=== PATIENT | female | born 1950 | race Caucasian/White ===

== ENCOUNTER 2023-10-24 21:05 | Observation (INO) | payer MEDICARE, BC, SELFPAY ==
[2023-10-24] VITALS (8 sets, daily range): BP systolic 95–140; BP diastolic 55–77; BMI 27.2
[2023-10-24 17:07] LABS: % Basophils 0.3 % (0-2); % Eosinophils 2.8 % (0-6); % Immature Granulocytes 0.3 % (0-0.5); % Lymphocytes 34.5 % (20.5-51.1); % Monocytes 12.2 % (1.7-9.3); % Neutrophils 49.9 % (42.2-75.2); Absolute Eosinophils 0.2 10^3/uL (0-0.7); Absolute Lymphocytes 2.1 10^3/uL (1.2-3.4); Absolute Monocytes 0.8 10^3/uL (0.1-0.6); Absolute Neutrophils 3.1 10^3/uL (1.4-6.5); Hemoglobin 13.6 g/dL (12.0-16.0); Mean Corp Hgb Conc. 34.9 g/dL (33.0-37.0); Mean Corpuscular Hgb 31.1 pg (27.0-31.0); Mean Platelet Volume 10.2 fL (7.4-10.4); Nucleated Red Blood Cells % 0 %; Platelet Count 233 10^3/uL (130-400); Red Blood Cell Count 4.38 10^6/uL (4.20-5.40); Red Cell Dist. Width 13.2 % (11.5-14.5); White Blood Cell Count 6.1 10^3/uL (4.8-10.8)
[2023-10-24 17:18] LABS: ALT (SGPT) 18 U/L (0-35); AST (SGOT) 30 U/L (14-36); Albumin 4.3 g/dl (3.5-5.0); Alkaline Phosphatase 78 U/L (38-126); Blood Urea Nitrogen 12 mg/dl (7-17); Calcium 9.2 mg/dl (8.4-10.2); Carbon Dioxide 28 mmol/L (22-30); Chloride 99 mmol/L (98-107); Glucose 84 mg/dl (70-99); Potassium 4.6 mmol/L (3.5-5.1); Sodium 131 mmol/L (135-145); Total Bilirubin 0.5 mg/dl (0.2-1.3); Total Protein 7.2 g/dl (6.3-8.2); eGFR > 60.00
[2023-10-24 17:24] LABS: INR 1.14; PT 14.4 Sec (11.4-14.6)
--- NOTE | 2023-10-24 18:33 | ED.GENMED ---
History of Present Illness
General
Chief Complaint: Weakness
Source: patient
Exam Limitations: none
Time Seen by Provider: 10/24/23 18:27
Nursing documentation reviewed up to this point in time: agreed with
Travel History
Have you had any contact with someone who has COVID-19?: No
Do you have any symptoms of coronavirus? Fever > 100 degrees, chills, cough, shortness of breath, sore throat, loss of taste or smell, muscle aches, or headache?: No
History of Present Illness
History of Present Illness:
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
left foot and left arm kept ivan.' Feels her left foot 'keeps pulling up' and left hand and arm 'keeps tightening up.'
She denies any recent falls/head injury.
She states she had similar symptoms of brain fog and 'contractions' on the left side of her body in April 2023 and was found to have a 'bladder wall infection' and needed IV antibiotics.
Patient denies fever or chills, denies chest pain or trouble breathing, denies abdominal pain. Denies dysuria, frequency, urgency.
Patient lives alone at [facility] in independent living. Her PCP is Dr. Chavira and she has appt to see in 4 days
Past History
Past History
ED Past Medical History: CVA, Hypercholesterolemia and Other (DVT 07/2023 on Eliquis)
ED Past Surgical History: Gynecological and Orthopedic
Social History
Tobacco: Non-smoker
Alcohol: None
Personal: Single
Living: alone
Review of Systems
Review of Systems
Allergies reviewed?: Yes
All Other Systems: ROS reviewed and negative except as documented in HPI and ROS
Constitutional: Denies fever or chills
Respiratory: Denies trouble breathing
Cardiac: Denies chest pain, palpitations or syncope
ABD/GI: Denies abdominal pain, nausea, vomiting, diarrhea or constipated
: Denies dysuria, frequency, flank pain, difficulty voiding or urgency
Musculoskeletal: Denies edema
Skin: Reports no symptoms
Neurological: Reports other ('Pulling' sensation left leg and arm, her left foot keeps 'pulling up.' Feels like her left arm and left leg muscles 'tighten up.'); Denies headache or weakness
Phy Exam
Physical Exam
Physical Exam:
GENERAL: No acute distress. A&Ox3.
CONSTITUTIONAL: Afebrile.
EYES: PERRL, conjunctivae normal
ENMT: moist mucus membranes, Pharynx nl
RESPIRATORY: Regular respirations, nonlabored, lungs clear.
CARDIOVASCULAR: Regular rate and rhythm, no murmurs, no rubs.
GI: Soft, nontender, normal BS
MUSCULOSKELETAL: Adequate range of motion of all extremities. Well perfused. No edema. No contractions, spasms, tremors of extremities note.
SKIN: Warm, dry, pink
PSYCH: Normal mood and affect. Well kept, interactive and appropriate
NEUROLOGIC: Awake, alert and oriented. Speech very slow and deliberate. Hand grasp equal. Strength equal throughout.
Course
Orders/Labs/Results
Orders:
Orders
10/24/23 16:46
Electrocardiogram (*1) Urgent
Reason for Study: Fatigue / Weakness
EKG- Treatment ONCE
10/24/23 16:53
Complete Blood Count/With Diff Urgent
Comprehensive Metabolic Panel Urgent
Magnesium Urgent
Comment: ADD ON
PT/INR [Prothrombin Time] Urgent
10/24/23 18:53
Straight cath- Treatment ONCE
10/24/23 18:54
CT Head W/o Iv Contrast Urgent
Comment:
Reason For Exam: left arm and leg spasms, feels 'brain fog'
10/24/23 19:50
Urinalysis Reflex To Culture Urgent
Date Specimen was Collected: 10/24/23
Time Specimen was Collected: 18:56
Urine Microscopic Reflex Cult Urgent
10/24/23 20:41
Add On- LAB Urgent
Tests Added?: Magnesium
Abnormal Lab Results
10/24/23 10/24/23
16:53 19:50
MCH 31.1 H pg
(27.0-31.0)
Absolute Monos (auto) 0.8 H 10^3/uL
(0.1-0.6)
Monocytes % 12.2 H %
(1.7-9.3)
Sodium 131 L mmol/L
(135-145)
Ur Occult Blood Reflex 1+ A
(Negative)
Urine RBC 11-15 A /HPF
(0-2)
10/24/23 16:53
10/24/23 16:53
Vital Signs
Initial and Last Documented VS:
Initial Vital Signs
Temp Pulse Resp BP Pulse Ox
98.1 F 63 16 122/75 95
10/24/23 16:24 10/24/23 16:24 10/24/23 16:24 10/24/23 16:24 10/24/23 16:24
Last Documented Vital Signs
Temp Pulse Resp BP Pulse Ox
98.1 F 65 16 125/77 99
10/24/23 16:24 10/24/23 18:01 10/24/23 18:01 10/24/23 18:01 10/24/23 18:01
MDM/Problems Addressed
Differential Diagnosis Includes:
UTI, TIA/CVA
MDM/Problems Addressed:
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
left foot and left arm kept contacting.' Feels her left foot 'keeps pulling up' and left hand and arm 'keeps tightening up.'
She denies any recent falls/head injury.
She states she had similar symptoms in April 2023 and was found to have a 'bladder wall infection' and needed IV antibiotics.
Patient denies fever or chills, denies chest pain or trouble breathing, denies abdominal pain.
Patient lives alone at [facility] in independent living. Her PCP is Dr. Chavira and she has appt to see in 4 days
Afebrile, NAD
EKG NSR
10/24/2023 1859 PM
CBC unremarkable
CMP with no clinically significant abnormality
10/24/2023 193 PM
Radiology report sent to me:
There is no acute intracranial process.
Moderate volume loss. Moderate leukoaraiosis.
Previous infarcts in the external capsule basal ganglia bilaterally right greater than left.
10/24/20232009 PM
Straight cath UA: Negative for infection
Explained to patient nothing in today's workup to explain her symptoms
She lives alone, she is unable to ambulate, she had to be physically lifted by 2 people out of the wheelchair and onto the stretcher
She will be admitted for ambulatory dysfunction, she needs PT evaluation
Hospitalist notified of admission
*EKG
EKG Intrepretation Date: 10/24/23
Rate: normal
Rhythm: sinus
[place]: normal axis
Interval: normal interval
QRS Pattern: normal QRS
Ischemia: no ischemia
*Critical Care Note
Total Time (30-74mins, 75-104mins- exclusive of procedures): Not Applicable
ED Attending Note
-
Portions of this chart may have been created with voice recognition software.� Occasional wrong word or��sound alike� substitutions may have occurred due to the inherent limitations of voice recognition software.
Discharge Plan
Departure
Patient Disposition: Admit
Date of Disposition: 10/24/23
Time of Disposition: 20:11
Presentation/result/management discussed w/ accepting MD/DO: Hospitalist
Condition: Fair
Discharge Problem:
Ambulatory dysfunction, Muscle spasm of left lower extremity
Prescriptions:
No Action
acetaminophen 325 mg Tablet
1,300 mg PO BID
B Complex Tablet Extended Release
1 tab PO DAILY
fexofenadine [Erum] 180 mg Tablet
180 mg PO HS
escitalopram oxalate 10 mg tablet
10 mg PO DAILY
cholecalciferol (vitamin D3) [Vitamin D3] 25 mcg (1,000 unit) Tablet
25 mcg PO DAILY
buprenorphine 5 mcg/hour patch weekly
5 mcg topical SA
Eliquis 5 mg tablet
5 mg PO BID
Curcumin
1 tab PO BID
Lumbrokinaze
20 mg PO BID
Maquia
1 tab PO DAILY
Referrals:
Radha Chavira MD [Family Provider] -
Interventions
Interventions:
*Risk Screen - Suicide Last Done: 10/24/23 18:01
*General Assessment Last Done: 10/24/23 18:01
*Neglect/Abuse Screening Last Done: 10/24/23 18:01
ED- Fall Risk Assessment Last Done: 10/24/23 18:01
*ED COVID-19 Vaccine History Last Done: 10/24/23 16:24
ED- Cardiac Assessment Last Done: 10/24/23 18:01
ED- Neurological Assessment Last Done: 10/24/23 18:01
ED- Pulmonary Assessment Last Done: 10/24/23 18:01
[2023-10-24 19:59] LABS: Urine Albumin Negative (Neg - Trace); Urine Bilirubin Negative (Negative); Urine Character Clear (Clear); Urine Color Yellow; Urine Glucose Negative (Negative); Urine Ketone Negative (Negative); Urine Leukocyte Negative (Negative); Urine Nitrite Negative (Negative); Urine Occult Blood 1+ (Negative); Urine Urobilinogen Negative (Neg - 1+)
--- NOTE | 2023-10-24 20:53 | HPS.HSE ---
Addendum entered and electronically signed by Deuce Fisher DO 10/24/23 22:28:
Patient seen and examined independently. Agree with findings and plan as set forth by Kylie Giles PA-C.
Patient is a 73y F with PMH significant for remote CVA, chronic pain, DVT and neurogenic bladder who presents to ED complaining of 'brain fog' and left sided muscle spasms (arm and leg). Symptoms have been present for about 3 days. Patient
states that she has had increased difficulty ambulating. Walks with a walker to a minimal degree at baseline. Mostly wheelchair / scooter dependent. No specific injury or trauma noted.
Work-up in the ED is essentially unremarkable.
Ass:
Ambulatory Dysfunction
Muscle Spasms
History of CVA
Residual Left Hemiparesis
Chronic Pain Syndrome
Neurogenic Bladder
Anxiety / Depression
History of DVT
Plan:
Observe overnight for further evaluation and treatment.
No evidence of acute abnormality on initial work-up.
PT / OT evaluation.
Supportive care for pain control, mobility, etc.
Continue home Rx medications.
Hold multiple dietary supplements.
Original Note:
Family Physician
-
Family Physician: Radha Chavira
Chief Complaint
-
'Brain Fog' and 'Left Muscle Contractions'
History of Present Illness
Pt is a 73yo F w/ a PMH of HLD, CVA with residual slow speech and left hemiparesis, neurogenic bladder, chronic pain and recent DVT who presents to the ED c/o of sudden 'brain fog' and 'muscle contractions' x 3 days. She states she has previously
experienced similar symptoms a couple of years ago and was found to have a magnesium deficiency which she states she has been supplementing at 300mg daily ever since. She also notes similar symptoms more recently last year at which time she was
found to have a'bladder wall infection'. She notes during that episode she received one dose of Robaxin with resolution of the muscle spasms. She denies fevers, or chills. She denies nausea, vomiting, or diarrhea.
Medical History
Past Medical History
Past Medical History: Reports Other
Additional Past Medical History:
Multiple Strokes with Residual Left Hemiparesis
Neurogenic bladder
Chronic Pain
Osteoarthritis
Hyperlipidemia
DVT - Jul 2023
Past Surgical History: Reports Other
Additional Past Surgical History:
Tubal Ligation
Right Elbow Sugery
Social History
Tobacco: Non-smoker
Alcohol: Former
Living: Alone
Family History
Family History: Not pertinent
Allergies / Home Medications
Allergies reflects when Allergies were last updated in [facility].
Home Medications with original date entered in [facility]
Allergy/Medication List:
Allergies
Allergy/AdvReac Type Severity Reaction Status Date / Time
amantadine Allergy Hives Verified 10/24/23 16:45
amoxicillin Allergy Rash Verified 10/24/23 16:45
aspirin Allergy Nausea / Verified 10/24/23 16:45
Vomiting
Barbiturates Allergy Unknown Verified 10/24/23 16:45
casein Allergy Nausea / Verified 10/24/23 16:45
Vomiting
celecoxib [From Celebrex] Allergy Shortness Verified 10/24/23 16:45
of Breath
Hood And Derivatives Allergy Nausea / Verified 10/24/23 16:45
Vomiting
diazepam [From Valium] Allergy Anaphylaxis Verified 10/24/23 16:45
doxycycline Allergy Nausea / Verified 10/24/23 16:45
Vomiting
erythromycin base Allergy Nausea / Verified 10/24/23 16:45
Vomiting
gabapentin Allergy Unknown Verified 10/24/23 16:45
gluten Allergy Nausea / Verified 10/24/23 16:45
Vomiting
Milk Containing Products Allergy Nausea / Verified 10/24/23 16:45
(Dairy) Vomiting
Penicillins Allergy Shortness Verified 10/24/23 16:45
of Breath
spinach Allergy Nausea / Verified 10/24/23 16:45
Vomiting
Sulfa (Sulfonamide Allergy Rash Verified 10/24/23 16:45
Antibiotics)
Tetracyclines Allergy Rash Verified 10/24/23 16:45
tree nut Allergy Shortness Verified 10/24/23 16:45
of Breath
.beans Allergy Unknown Uncoded 10/24/23 16:45
.eggplant Allergy Unknown Uncoded 10/24/23 16:45
.nightshade plants Allergy Nausea / Uncoded 10/24/23 16:45
Vomiting
.potatoes Allergy Nausea / Uncoded 10/24/23 16:45
Vomiting
clavamox Allergy Anaphylaxis Uncoded 10/24/23 16:45
n-saids Allergy Unknown Uncoded 10/24/23 16:45
Home Medications
Curcumin 1 tab PO BID 10/24/23
Lumbrokinaze 20 mg PO BID 10/24/23
Maquia 1 tab PO DAILY 10/24/23
acetaminophen 325 mg tablet 1,300 mg PO BID 10/24/23
apixaban 5 mg tablet (Eliquis) 5 mg PO BID 10/24/23
buprenorphine 5 mcg/hour weekly transdermal patch 5 mcg topical SA 10/24/23
cholecalciferol (vitamin D3) 25 mcg (1,000 unit) tablet (Vitamin D3) 25 mcg PO DAILY 10/24/23
escitalopram oxalate 10 mg tablet 10 mg PO DAILY 10/24/23
fexofenadine 180 mg tablet 180 mg PO HS 10/24/23
vitamin B complex 1 tab PO DAILY 10/24/23
Review of Systems
-
A 12 point ROS was completed and negative except as noted: Yes
Constitutional: Denies Fever
Respiratory: Denies Cough or Trouble Breathing
Cardiac: Denies Chest Pain or Palpitations
Abdomen/GI: Reports Constipated; Denies Abdominal Pain, Nausea, Vomiting or Diarrhea
: Denies Dysuria or Frequency
Physical Exam
Vital Signs
Vital Signs
Temp Pulse Resp BP Pulse Ox
98.1 F 82 26 116/71 96
10/24/23 16:24 10/24/23 20:30 10/24/23 20:30 10/24/23 20:00 10/24/23 20:30
Physical Exam
General: Comfortable and Conversant
HEENT: Anicteric, Moist mucous membranes and Other (Hearing Aids)
Respiratory: Clear and Non Labored Respirations
Cardiac: S1/S2 and Regular Rhythm
GI: Soft and Non Tender
Rectal: Deferred by Provider
Musculoskeletal: No Clubbing, No Cyanosis and Edema, Left Lower Extremity
Skin: Warm and Dry
Neuro: Awake, Alert, Oriented and Other (Left hemiparesis which is chronic; No contractures or signficant muscle spasms appreciated )
Laboratory Results
-
10/24/23 16:53
10/24/23 16:53
Laboratory Results
PT 14.4 Sec (11.4-14.6) 10/24/23 16:53
INR 1.14 10/24/23 16:53
Total Bilirubin 0.5 mg/dl (0.2-1.3) 10/24/23 16:53
AST 30 U/L (14-36) 10/24/23 16:53
ALT 18 U/L (0-35) 10/24/23 16:53
Alkaline Phosphatase 78 U/L (38-126) 10/24/23 16:53
Data Reviewed
-
CT Scan: Report Reviewed by me
Lab Data: Labs Reviewed by me
Impression/Plan
-
Ambulatory Dysfunction
-Consult PT/OT
Hyponatremia, mild
-Add fluid restriction
-Check urine sodium and urine osmo
-Recheck sodium level in AM
Multiple Strokes with Residual Slow Speech and Left Hemiparesis
-Appears to be at baseline
Chronic Pain
-Continue Butrans Patch
Depression
-Continue Lexapro though consider stopping if sodium remains low
DVT in Jul 2023
-Continue Eliquis
Code Status: DNR
[2023-10-24 21:11] LABS: Magnesium 2.2 mg/dl (1.6-2.3)
[2023-10-24 21:18] LABS: Urine Sodium 70 mmol/L (30-90)
[2023-10-24 21:27] LABS: Osmolality Urine 364 mOsm/kg (300-900)
[2023-10-24] MEDS: ELIQUIS 5 MG PO (22:28)
[2023-10-24] MEDS: TYLENOL 1000 MG PO (22:28)
--- NOTE | 2023-10-24 22:48 | PTCARENOTE ---
Addendum entered by Madhavi Portillo RN 10/24/23 23:14:
Buprenorphine patch (5 mcg) on patient's right lateral ellington. Patient states patch is due to be changed Friday night
Original Note:
Received pt from ED via stretcher. Pt pulled over onto bed. AAOx3, VSS, complains of cramping like pain down left arm and left leg. Oriented to floor, call sage within reach.
[2023-10-25] MEDS: SKELAXIN 800 MG PO (03:35)
[2023-10-25 06:52] LABS: Blood Urea Nitrogen 10 mg/dl (7-17); Calcium 9.1 mg/dl (8.4-10.2); Carbon Dioxide 25 mmol/L (22-30); Chloride 97 mmol/L (98-107); Estimated Creatinine Clearance 56 ml/min; Glucose 90 mg/dl (70-99); Potassium 4.3 mmol/L (3.5-5.1); Sodium 132 mmol/L (135-145); eGFR > 60.00
[2023-10-25 07:01] VITALS: BP 101/63
[2023-10-25] MEDS: LEXAPRO 10 MG PO (08:49)
[2023-10-25] MEDS: TYLENOL 1000 MG PO ×3 (08:49→21:36)
[2023-10-25] MEDS: ELIQUIS 5 MG PO ×2 (08:49→21:34)
--- NOTE | 2023-10-25 12:18 | CM ---
IA completed with pt at bedside. Pt is 95% deaf and reads lips.
Pt is a 73yr old female admitted on OBS for increase of weakness and brain fog.
SW issued HANNA and pt signed it. Copy provided per request and copy on chart.
At baseline, pt lives in an MD apartment at [facility].
Per pt, she is indep with getting herself up in the morning and completing her ADLs; dressing and bathing herself. Pt then has caregivers through [facility] 9a-4p, 6days a week to aide with housekeeping and meal prep. Per pt they will aide with
providing hands on care if needed, but rarely is.
Pt uses a RW, wheelchair, and scooter for mobility; all depending on her strength level at the time. Pt has a commode next to her bed and a shower chair.
Pt has been to the SNF at [facility] and has had VN. Per pt, she has visiting nursing through [facility] currently.
Pt is open to recommendations, but would prefer to return to home given the supports she has in place.
PCP; Radha Chavira
Pharm; mail order through [facility]
PLAN; Home with no anticipated needs
[2023-10-25 12:37] VITALS: BP 112/52; PULSE 64; O2SAT 93
[2023-10-25 13:03] VITALS: BP 112/52; PULSE 64; O2SAT 93
--- NOTE | 2023-10-25 14:28 | W.PN.HOSP.TC ---
Today's Communication/Plan
-
Add baclofen
Continue PT OT eval
Assessment / Plan
Assessment / Plan
Ambulatory Dysfunction
-Await OT PT eval
Muscle spasm-patient has recurrent spasms in the left side. She has residual weakness from prior strokes. Will try baclofen
Hyponatremia, mild
-Add fluid restriction
-Check urine sodium and urine osmo
-Recheck sodium level in AM
Multiple Strokes with Residual Slow Speech and Left Hemiparesis
-Appears to be at baseline
Chronic Pain
-Continue Butrans Patch
Depression
-Continue Lexapro though consider stopping if sodium remains low
DVT in Jul 2023
-Continue Eliquis
Code Status: DNR
Anticipated Discharge: Within 24 hours
Subjective/Interval History
-
Date of Service: October 25, 2023
Feeling improved. Less spasms in the left arm and the leg.
Objective Data
-
Labs:
Laboratory Results
10/25/23
05:33
Sodium 132 L
Potassium 4.3
Chloride 97 L
Carbon Dioxide 25
BUN 10
Creatinine 0.5 L
Glucose 90
Calcium 9.1
Vital Signs:
Vital Signs
Temp Pulse Resp BP Pulse Ox
98.0 F 63 16 101/63 93
10/25/23 07:01 10/25/23 07:01 10/25/23 07:01 10/25/23 07:01 10/25/23 07:01
I&O
10/24/23 10/25/23 10/26/23
06:59 06:59 06:59
Intake Total 480 / 480
Balance 480 / 480
Review of Systems
-
Constitutional: Denies Fever
Respiratory: Denies Trouble Breathing
Cardiac: Denies Chest Pain
Abdomen/GI: Denies Abdominal Pain, Nausea or Vomiting
Neuro: Denies Headache
Physical Exam
-
General: No Apparent Distress
HEENT: Moist Mucous Membranes
Respiratory: Clear to Auscultation
Cardiac: Regular Rhythm and S1/S2
Neuro: AO x 3; Negative No Motor Deficits (Left upper and lower extremity 4+/5; slightly increased tone in the left arm and leg)
Psych: Calm; Negative Confused
[2023-10-25 15:59] VITALS: BP 105/58
--- NOTE | 2023-10-25 16:42 | PTCARENOTE ---
Patients own Buprenorphine patch taken to pharmacy, barcode placed. Placed in locked applications engineer med room with green sheet. To be administered @ 20:00.
[2023-10-25] MEDS: LIORESAL 2.5 MG PO ×2 (17:18→21:34)
[2023-10-25] MEDS: NON-FORMULARY ITEM 5 MCG TOPICAL (21:26)
--- NOTE | 2023-10-25 21:26 | PTCARENOTE ---
Pt. had own Buprenorphine 5mcg patch on R.Thigh. With Gabrielle TODD old patch was removed and wasted. New patch (same medication and strength) applied and dated for 10/25.
[2023-10-25 23:34] VITALS: BP 129/63
[2023-10-26 07:48] VITALS: BP 105/68
[2023-10-26] MEDS: LIORESAL 2.5 MG PO ×2 (08:55→15:49)
[2023-10-26] MEDS: LEXAPRO 10 MG PO (08:56)
[2023-10-26] MEDS: ELIQUIS 5 MG PO (08:57)
[2023-10-26] MEDS: TYLENOL 1000 MG PO ×2 (08:57→15:49)
--- NOTE | 2023-10-26 13:29 | CM ---
PT recommending SNF, though resident is OBS.
Through speaking with pt, she is not interested in SNF and will dc home.
SW offered referral to VN, but pt would prefer to resume outpt therapy at [facility].
Pt will dc with no needs.
--- NOTE | 2023-10-26 13:35 | W.PN.HOSP.TC ---
Today's Communication/Plan
-
DC after seen by PT
Assessment / Plan
Assessment / Plan
Ambulatory Dysfunction
-PT eval eval noted-recommends home health versus SNF. PT to see you today for final disposition.
Muscle spasm-patient has recurrent spasms in the left side. She has residual weakness from prior strokes. Patient is seeing benefit with baclofen which I would continue
Hyponatremia, mild
-Continue fluid restriction
-urine sodium and urine osmo shows presence of excessive ADH
-Follow-up as an outpatient on fluid restriction. If continued issue consider switching from Lexapro
Multiple Strokes with Residual Slow Speech and Left Hemiparesis
-Appears to be at baseline
Chronic Pain
-Continue Butrans Patch
Depression
-Continue Lexapro
DVT in Jul 2023
-Continue Eliquis
Code Status: DNR
Anticipated Discharge: Today
Subjective/Interval History
-
Date of Service: October 26, 2023
Patient sees response to baclofen. Improved spasms with it. She sees as the medication wears off she gets the spasms again but she wants to keep her 2.5 mg dose.
Await PT eval or today
Objective Data
-
Vital Signs:
Vital Signs
Temp Pulse Resp BP Pulse Ox
97.4 F 61 16 105/68 92
10/26/23 07:48 10/26/23 07:48 10/26/23 07:48 10/26/23 07:48 10/26/23 07:48
I&O
10/25/23 10/26/23 10/27/23
06:59 06:59 06:59
Intake Total 480 / 480 840 / 840
Balance 480 / 480 840 / 840
Review of Systems
-
Constitutional: Denies Fever
EENT: Denies Sore Throat
Respiratory: Denies Cough or Trouble Breathing
Cardiac: Denies Chest Pain
Abdomen/GI: Denies Abdominal Pain, Nausea or Vomiting
Neuro: Denies Dizzy
Physical Exam
-
General: No Apparent Distress
HEENT: Moist Mucous Membranes
Respiratory: Clear to Auscultation
Cardiac: Regular Rhythm and S1/S2
GI: Soft, Nontender, Nondistended and Normal Bowel Sounds
Neuro: AO x 3; Negative No Motor Deficits (left arm and leg findings as yesterday ;improved tone noted)
Psych: Calm
[2023-10-26 14:24] VITALS: BP 111/65; PULSE 61; O2SAT 94
[2023-10-26 15:08] VITALS: BP 103/59
--- NOTE | 2023-10-26 15:27 | W.DS.TRANS ---
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
-
Discharge Instructions:
Discharge Diagnosis/Procedures Left sided muscle spasms;hyponatremia
Diet Restrict fluids to 48 oz
Activity As tolerated
Driving Restrictions Not until seen by your Dr
Bathing Restrictions None
Blood Work BMP blood work in a week -arrange it through
your PCP
Other Services VN
Instructions:
Stand-Alone Forms:
Changes to Home Medications: Yes
Discharge Medications:
DC Medications w/original date entered in [employer]
Curcumin 1 tab PO BID Supplement 10/24/23
Lumbrokinaze 20 mg PO BID Supplement 10/24/23
Maquia 1 tab PO DAILY Supplement 10/24/23
acetaminophen 325 mg tablet 1,300 mg PO BID Pain 10/24/23
apixaban 5 mg tablet (Eliquis) 5 mg PO BID Blood Clot Prevention/Tx 10/24/23
buprenorphine 5 mcg/hour weekly transdermal patch 5 mcg topical SA Pain 10/24/23
cholecalciferol (vitamin D3) 25 mcg (1,000 unit) tablet (Vitamin D3) 25 mcg PO DAILY Supplement 10/24/23
escitalopram oxalate 10 mg tablet 10 mg PO DAILY Depression 10/24/23
fexofenadine 180 mg tablet 180 mg PO HS Allergies 10/24/23
vitamin B complex 1 tab PO DAILY Supplement 10/24/23
baclofen 5 mg tablet 2.5 mg PO TID #90 tabs 10/26/23
Home Medication Changes
New med - baclofen
Pending Results: No
--- NOTE | 2023-10-26 16:07 | W.DCSUMMARY ---
Discharge Summary
Discharge Data
Date of Admission: 10/24/23
Date of Discharge: 10/26/23
-
Pending Results: No
Hospital Course
Primary diagnosis:
Left-sided muscle spasms
Mild hyponatremia
Secondary diagnosis:
History of multiple strokes status post residual left sided weakness
Chronic pain on Butrans patch
Depression
History of deep vein thrombosis on Eliquis
Hospital course:
Patient presented with tach left-sided muscle spasm both in the arm and the leg and brain fog. She had symptoms for 3 days. She was having increasing difficulty with ambulation. She walks with a walker with minimal degree at baseline. Mostly
wheelchair/scooter dependent. No trauma or injury.
She apparently had a similar muscle spasm and had Robaxin with benefit but didnt need termination clerk treatement.
CT head was neg for acute findings. No new focal neurological symptoms apart from residual left hemiparesis
She was started on symptomatic treatments with baclofen for which she has seen the benefit. Started a low-dose of 2.5 mg daily. Can uptitrate as needed. She was seen by PT OT who recommended home health.
Hyponatremia, mild
-Continue fluid restriction
-urine sodium and urine osmo shows presence of excessive ADH
-Follow-up as an outpatient on fluid restriction.� If continued issue consider switching from Lexapro
Multiple Strokes with Residual Slow Speech and Left Hemiparesis
-Appears to be at baseline
Chronic Pain
-Continue Butrans Patch
Depression
-Continue Lexapro
DVT in Jul 2023
-Continue Eliquis
Discharge Plan
-
Patient Disposition: Home with Home Care
Discharge Diagnosis/Procedures: Left sided muscle spasms;hyponatremia
Diet: Restrict fluids to 48 oz
Activity: As tolerated
Driving Restrictions: Not until seen by your Dr
Bathing Restrictions: None
Blood Work: BMP blood work in a week -arrange it through your PCP
Other Services: VN
Referrals:
Radha Chavira MD [Family Provider] - in less than 1 week
Prescriptions:
New
baclofen 5 mg Tablet
2.5 mg PO TID Qty: 90 0RF
Continued
acetaminophen 325 mg Tablet
1,300 mg PO BID
vitamin B complex Tablet Extended Release
1 tab PO DAILY
fexofenadine 180 mg Tablet
180 mg PO HS
escitalopram oxalate 10 mg tablet
10 mg PO DAILY
cholecalciferol (vitamin D3) [Vitamin D3] 25 mcg (1,000 unit) Tablet
25 mcg PO DAILY
buprenorphine 5 mcg/hour patch weekly
5 mcg topical SA
Eliquis 5 mg tablet
5 mg PO BID
Curcumin
1 tab PO BID
Lumbrokinaze
20 mg PO BID
Maquia
1 tab PO DAILY
Discharge Orders:
Discharge Patient (As Directed); Ordered 10/26/23
Ordered By: Isac Gamble
== END 2023-10-26 18:45 | disposition home health service (06) ==
LOC: 4 EAST ACU 21:05
PROVIDERS: Emergency Medicine; Physician Assistant Medical; Registered Nurse; ADMITTING PHYSICIAN Hospitalist; ATTENDING PHYSICIAN Internal Medicine; EMERGENCY PHYSICIAN Emergency Medicine; FAMILY PHYSICIAN Internal Medicine
DX: M62.838 Other muscle spasm (principal); E87.1 Hypo-osmolality and hyponatremia; R53.1 Weakness; G21.4 Vascular parkinsonism; G89.4 Chronic pain syndrome; E78.5 Hyperlipidemia, unspecified; R26.9 Unspecified abnormalities of gait and mobility; K90.0 Celiac disease; N31.9 Neuromuscular dysfunction of bladder, unspecified; H90.5 Unspecified sensorineural hearing loss; I69.328 Other speech and language deficits following cerebral infarction; I69.354 Hemiplegia and hemiparesis following cerebral infarction affecting left non-dominant side; R53.83 Other fatigue; I67.81 Acute cerebrovascular insufficiency; F32.A Depression, unspecified; M19.90 Unspecified osteoarthritis, unspecified site; F41.9 Anxiety disorder, unspecified; Z79.01 Long term (current) use of anticoagulants; Z88.6 Allergy status to analgesic agent; Z88.1 Allergy status to other antibiotic agents; Z91.011 Allergy to milk products; Z91.018 Allergy to other foods; Z88.0 Allergy status to penicillin; Z88.2 Allergy status to sulfonamides; Z88.8 Allergy status to other drugs, medicaments and biological substances; Z66 Do not resuscitate
CPT/HCPCS: 70450; 80048; 80053; 81003; 81015; 83735; 83935; 84300; 85025; 85610; 87070; 93005; 97162; 97166; 97530; 99285; G0378

== ENCOUNTER 2023-11-14 21:30 | Observation (INO) | payer MEDICARE, BC, SELFPAY ==
[2023-11-14 17:34] VITALS: BP 100/62
[2023-11-14 17:35] VITALS: BP 100/62
--- NOTE | 2023-11-14 17:38 | ED.GENMED ---
History of Present Illness
General
Chief Complaint: Weakness
Source: patient
Exam Limitations: none
Time Seen by Provider: 11/14/23 17:28
Nursing documentation reviewed up to this point in time: agreed with
History of Present Illness
History of Present Illness:
Patient is a 73-year-old female with history of hyponatremia and multiple strokes left-sided residual weakness depression DVT on Eliquis presents to the ER for evaluation. Patient reports she felt very foggy prior to was sitting at her computer and
felt weak. She does mention that her blood pressure was elevated. She does live independently. She denies any recent illness, cough fever chills. She denies any neck frequency urgency or dysuria. She uses a walker for ambulation.
Patient was recently here October 24 discharged the for left-sided muscle spasms. Patient was started on baclofen at that time.
She had mild hyponatremia and was instructed to continue fluid restriction.
Past History
Past History
ED Past Medical History: CVA, Hypercholesterolemia and Other (DVT 07/2023 on Eliquis)
ED Past Surgical History: Gynecological and Orthopedic
Social History
Tobacco: Non-smoker
Alcohol: None
Personal: Single
Living: alone
Review of Systems
Review of Systems
Allergies reviewed?: Yes
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
All Other Systems: ROS reviewed and negative except as documented in HPI and ROS
Constitutional: Reports fatigue; Denies fever or chills
EENT: Reports no symptoms
Respiratory: Reports no symptoms
ABD/GI: Reports no symptoms
: Reports no symptoms
Musculoskeletal: Reports no symptoms
Skin: Reports no symptoms
Neurological: Reports no symptoms
Hematologic/Lymphatic: Reports no symptoms
Psychiatric: Reports no symptoms
Phy Exam
General Physical Exam
General Presentation: no apparent distress
General age: appears older than age
General Skin: warm and dry
General Habitus: elderly
General Mental: alert
Cardiovascular Exam
Cardiovascular Exam: regular rate/rhythm, no murmur and normal peripheral pulses
Pulmonary Exam
Pulmonary Exam: lungs clear and no respiratory distress
Neurological Exam
Neurological Exam: alert and oriented x3
Musculoskeletal Exam
Musculoskeletal Exam: full ROM
Skin Exam
Skin Exam: normal color and warm/dry
Psychiatric Exam
Psychiatric Exam: normal mood/affect
Course
Orders/Labs/Results
Orders:
Orders
11/14/23 17:53
Chest [CR Chest - 2 Views ] Urgent
Comment:
Reason For Exam: fever
11/14/23 17:58
COVID-19 Antigen Urgent
Source: Nasal Swab
Complete Blood Count/With Diff Urgent
Comprehensive Metabolic Panel Urgent
Lactic Acid Q4H
Comment: CANCEL 2nd LACTIC ACID IF 1st LACTIC ACID IS LESS THAN 2
Blood Culture Q30M
ALYSA Source: Blood/Venous
Specimen Description:
Influenza A+B Rapid Molecular Urgent
ALYSA Source: Nasal Swab
Specimen Description:
11/14/23 18:00
Lactic Acid Q4H
Comment: CANCEL 2nd LACTIC ACID IF 1st LACTIC ACID IS LESS THAN 2
11/14/23 18:30
Blood Culture Q30M
ALYSA Source: Blood/Venous
Specimen Description:
11/14/23 18:43
Acetaminophen [Tylenol] 650 mg PO NOW STA
11/14/23 18:52
Urinalysis Reflex To Culture Urgent
Date Specimen was Collected: 11/14/23
Time Specimen was Collected: 17:56
Urine Microscopic Reflex Cult Urgent
Abnormal Lab Results
11/14/23 11/14/23
17:58 18:52
Absolute Lymphs (auto) 0.3 L 10^3/uL
(1.2-3.4)
Absolute Monos (auto) 0.8 H 10^3/uL
(0.1-0.6)
Neutrophils % 80.0 H %
(42.2-75.2)
Lymphocytes % 4.4 L %
(20.5-51.1)
Monocytes % 13.7 H %
(1.7-9.3)
Sodium 132 L mmol/L
(135-145)
Chloride 95 L mmol/L
(98-107)
Creatinine 0.5 L mg/dL
(0.6-1.0)
Glucose 123 H mg/dl
(70-99)
Urine Ketones Trace A
(Negative)
Ur Occult Blood Reflex 1+ A
(Negative)
Urine RBC 11-15 A /HPF
(0-2)
Urine Bacteria (Reflex) Few A
(Negative)
11/14/23 17:58
11/14/23 17:58
Vital Signs
Initial and Last Documented VS:
Initial Vital Signs
BP
100/62
11/14/23 17:34
Last Documented Vital Signs
Temp Pulse Resp BP Pulse Ox
99.6 F 82 17 101/53 96
11/14/23 20:17 11/14/23 20:00 11/14/23 20:00 11/14/23 20:00 11/14/23 17:45
MDM/Problems Addressed
Differential Diagnosis Includes:
not limited to: COVID influenza dehydration anemia electrolyte abnormality, UTI
MDM/Problems Addressed:
Patient is a 73-year-old female with past history of strokes with left-sided weakness uses cane for ambulation lives independently presents for feeling weak. Patient found to be flu positive. She has no cough. She was febrile here in the ER on
arrival but given Tylenol. Patient had a normal lactic acid denies cough questionable pneumonia on x-ray we will hold off on antibiotics however patient unable to ambulate will require admission for weakness and influenza
Chronic conditions affecting care:
cva
*Radiology
Radiology exam reviewed: radiology read reviewed
*Pulse Oximetry
Patient hypoxic: no
*Critical Care Note
Total Time (30-74mins, 75-104mins- exclusive of procedures): Not Applicable
Data Reviewed
Review of Other/Old Records Reveals: Discharge Summary
ED Attending Note
-
Portions of this chart may have been created with voice recognition software.� Occasional wrong word or��sound alike� substitutions may have occurred due to the inherent limitations of voice recognition software.
Discharge Plan
Departure
Patient Disposition: Admit
Date of Disposition: 11/14/23
Time of Disposition: 20:35
Admit to: Med/Surg
Admit to doctor: hospitalist
Presentation/result/management discussed w/ accepting MD/DO: Hospitalist
Patient with high blood pressure during this ER visit?: No
Condition: Fair
Covid-19: Negative COVID-19
Discharge Problem:
Influenza A, Weakness
Prescriptions:
No Action
acetaminophen 325 mg Tablet
1,300 mg PO BID
Rx Instructions:
compound-due to allergies
vitamin B complex Tablet Extended Release
1 tab PO DAILY
fexofenadine 180 mg Tablet
180 mg PO HS
escitalopram oxalate 10 mg tablet
10 mg PO DAILY
cholecalciferol (vitamin D3) [Vitamin D3] 25 mcg (1,000 unit) Tablet
25 mcg PO DAILY
buprenorphine 5 mcg/hour patch weekly
5 mcg topical FR
turmeric root extract [Curcuplex-95] 500 mg Capsule
1,000 mg PO DAILY Qty: 0
Eliquis 5 mg tablet
5 mg PO BID
sennosides [senna] 8.6 mg Tablet
17.2 mg PO HSPRN PRN (Reason: constipation)
tacrolimus 0.1 % Ointment
1 applic TOPICAL DAILY
calcium carbonate [Calcium 500] 500 mg calcium (1,250 mg) Tablet,Chewable
500 mg PO DAILY
Visbiome 112.5 billion cell Capsule
1 cap PO DAILY
magnesium oxide 400 mg magnesium Tablet
400 mg PO DAILY
baclofen 5 mg tablet
2.5 mg PO TIDPRN PRN (Reason: spasms)
glutathione 50 mg Capsule
100 mg PO DAILY
Referrals:
Radha Chavira MD [Family Provider] -
Interventions
Interventions:
*Risk Screen - Suicide Last Done: 11/14/23 17:45
*General Assessment Last Done: 11/14/23 17:45
*Neglect/Abuse Screening Last Done: 11/14/23 17:45
*ED COVID-19 Vaccine History Last Done: 11/14/23 17:45
ED- Cardiac Assessment Last Done: 11/14/23 17:45
ED- Neurological Assessment Last Done: 11/14/23 17:45
ED- Pulmonary Assessment Last Done: 11/14/23 17:45
[2023-11-14 17:44] VITALS: BMI 27.7
[2023-11-14 18:09] LABS: % Basophils 0.5 % (0-2); % Eosinophils 1.2 % (0-6); % Immature Granulocytes 0.2 % (0-0.5); % Lymphocytes 4.4 % (20.5-51.1); % Monocytes 13.7 % (1.7-9.3); Absolute Eosinophils 0.1 10^3/uL (0-0.7); Absolute Lymphocytes 0.3 10^3/uL (1.2-3.4); Absolute Monocytes 0.8 10^3/uL (0.1-0.6); Absolute Neutrophils 4.7 10^3/uL (1.4-6.5); Hematocrit 38.2 % (37.0-47.0); Hemoglobin 13.4 g/dL (12.0-16.0); Mean Corp Hgb Conc. 35.1 g/dL (33.0-37.0); Mean Corpuscular Hgb 30.8 pg (27.0-31.0); Mean Corpuscular Volume 87.8 fL (81.0-99.0); Mean Platelet Volume 10.2 fL (7.4-10.4); Nucleated Red Blood Cells % 0 %; Platelet Count 188 10^3/uL (130-400); Red Blood Cell Count 4.35 10^6/uL (4.20-5.40); Red Cell Dist. Width 13.1 % (11.5-14.5); White Blood Cell Count 5.9 10^3/uL (4.8-10.8)
[2023-11-14 18:21] LABS: Lactic Acid 1.2 mmol/L (0.7-2.0)
[2023-11-14 18:25] LABS: COVID-19 Antigen Negative (Negative)
[2023-11-14 18:27] LABS: ALT (SGPT) 17 U/L (0-35); AST (SGOT) 28 U/L (14-36); Albumin 4.1 g/dl (3.5-5.0); Alkaline Phosphatase 63 U/L (38-126); Blood Urea Nitrogen 12 mg/dl (7-17); Calcium 9.3 mg/dl (8.4-10.2); Carbon Dioxide 28 mmol/L (22-30); Chloride 95 mmol/L (98-107); Estimated Creatinine Clearance 56 ml/min; Glucose 123 mg/dl (70-99); Potassium 4.3 mmol/L (3.5-5.1); Sodium 132 mmol/L (135-145); Total Bilirubin 0.3 mg/dl (0.2-1.3); Total Protein 7.4 g/dl (6.3-8.2); eGFR > 60.00
[2023-11-14] MEDS: TYLENOL 650 MG PO ×2 (18:46→22:58)
[2023-11-14 19:00] VITALS: BP 104/50
[2023-11-14 19:03] LABS: Urine Albumin Negative (Neg - Trace); Urine Bilirubin Negative (Negative); Urine Character Clear (Clear); Urine Color Yellow; Urine Glucose Negative (Negative); Urine Ketone Trace (Negative); Urine Leukocyte Negative (Negative); Urine Nitrite Negative (Negative); Urine Occult Blood 1+ (Negative); Urine Specific Gravity 1.015 (<1.030); Urine Urobilinogen Negative (Neg - 1+)
[2023-11-14 19:20] LABS: Urine Bacteria Few (Negative); Urine White Cell 0-2 /HPF (0-5)
[2023-11-14 20:00] VITALS: BP 101/53
[2023-11-14] MEDS: NSS 500 IV (21:03)
--- NOTE | 2023-11-14 21:05 | HPS.HSE ---
Family Physician
-
Family Physician: Radha Chavira
Chief Complaint
-
weakness
History of Present Illness
73-year-old female past medical history of prior strokes with left-sided residual weakness,, hypercholesteremia, DVT in July on Eliquis, anxiety/depression, hyponatremia, muscle spasms, chronic pain syndrome, neurogenic bladder, presenting for
feeling very foggy and weak today. She states her blood pressure was elevated. She lives independently. Denies any recent illness, cough, fevers or chills. Denies any urinary symptoms. Denies any nausea vomiting or diarrhea. Denies any sick
contacts uses a walker at baseline. She did not get influenza vaccine this season because it almost killed her previously.
Medical History
Past Medical History
Past Medical History: Reports Other ( prior strokes with left-sided residual weakness,, hypercholesteremia, DVT in July on Eliquis, anxiety/depression, hyponatremia, muscle spasms, chronic pain syndrome, neurogenic bladder)
Past Surgical History: Reports None
Social History
Tobacco: Non-smoker
Alcohol: None
Drug: None
Family History
Family History: Not pertinent
Allergies / Home Medications
Allergies reflects when Allergies were last updated in [facility].
Home Medications with original date entered in [facility]
Allergy/Medication List:
Allergies
Allergy/AdvReac Type Severity Reaction Status Date / Time
amantadine Allergy Hives Verified 10/24/23 16:45
amoxicillin Allergy Rash Verified 10/24/23 16:45
aspirin Allergy Nausea / Verified 10/24/23 16:45
Vomiting
Barbiturates Allergy Unknown Verified 10/24/23 16:45
juarez Allergy Unknown Verified 10/24/23 21:41
casein Allergy Nausea / Verified 10/24/23 16:45
Vomiting
celecoxib [From Celebrex] Allergy Shortness Verified 10/24/23 16:45
of Breath
[place] And Derivatives Allergy Nausea / Verified 10/24/23 16:45
Vomiting
diazepam [From Valium] Allergy Anaphylaxis Verified 10/24/23 16:45
doxycycline Allergy Nausea / Verified 10/24/23 16:45
Vomiting
eggplant Allergy Unknown Verified 10/24/23 21:41
erythromycin base Allergy Nausea / Verified 10/24/23 16:45
Vomiting
gabapentin Allergy Unknown Verified 10/24/23 16:45
gluten Allergy Nausea / Verified 10/24/23 16:45
Vomiting
Milk Containing Products Allergy Nausea / Verified 10/24/23 16:45
(Dairy) Vomiting
NSAIDS (Non-Steroidal Allergy Unknown Verified 10/24/23 21:41
Anti-Inflamma
Penicillins Allergy Shortness Verified 10/24/23 16:45
of Breath
potato Allergy NAUSEA/VOMI Verified 10/24/23 21:41
TING
spinach Allergy Nausea / Verified 10/24/23 16:45
Vomiting
Sulfa (Sulfonamide Allergy Rash Verified 10/24/23 16:45
Antibiotics)
Tetracyclines Allergy Rash Verified 10/24/23 16:45
tree nut Allergy Shortness Verified 10/24/23 16:45
of Breath
.nightshade plants Allergy Nausea / Uncoded 10/24/23 16:45
Vomiting
clavamox Allergy Anaphylaxis Uncoded 10/24/23 16:45
Home Medications
acetaminophen 325 mg tablet 1,300 mg PO BID Pain 10/24/23
apixaban 5 mg tablet (Eliquis) 5 mg PO BID Blood Clot Prevention/Tx 10/24/23
buprenorphine 5 mcg/hour weekly transdermal patch 5 mcg topical FR Pain 10/24/23
cholecalciferol (vitamin D3) 25 mcg (1,000 unit) tablet (Vitamin D3) 25 mcg PO DAILY Supplement 10/24/23
escitalopram oxalate 10 mg tablet 10 mg PO DAILY Depression 10/24/23
fexofenadine 180 mg tablet 180 mg PO HS Allergies 10/24/23
turmeric root extract 500 mg capsule (Curcuplex-95) 1,000 mg PO DAILY Supplement ##0 10/24/23
vitamin B complex 1 tab PO DAILY Supplement 10/24/23
Lactobac no.2-Bifidobac no.1-S. thermo 112.5 billion cell capsule (Visbiome) 1 cap PO DAILY 11/14/23
baclofen 5 mg tablet 2.5 mg PO TIDPRN PRN spasms 11/14/23
calcium carbonate 500 mg calcium (1,250 mg) chewable tablet (Calcium 500) 500 mg PO DAILY 11/14/23
glutathione 50 mg capsule 100 mg PO DAILY 11/14/23
magnesium oxide 400 mg PO DAILY 11/14/23
sennosides 8.6 mg tablet (senna) 17.2 mg PO HSPRN PRN constipation 11/14/23
tacrolimus 0.1 % topical ointment 1 applic topical DAILY 11/14/23
Review of Systems
-
History Source: Patient
A 12 point ROS was completed and negative except as noted: Yes
Constitutional: Reports No Symptoms
EENT: Reports No Symptoms
Respiratory: Reports No Symptoms
Cardiac: Reports No Symptoms
Abdomen/GI: Reports No Symptoms
: Reports No Symptoms
Musculoskeletal: Reports No Symptoms
Skin: Reports No Symptoms
Neurological: Reports No Symptoms
Endocrine: Reports No Symptoms
Hematologic/Lymphatic: Reports No Symptoms
Psych: Reports No Symptoms
Physical Exam
Vital Signs
Vital Signs
Temp Pulse Resp BP Pulse Ox
99.6 F 82 17 101/53 96
11/14/23 20:17 11/14/23 20:00 11/14/23 20:00 11/14/23 20:00 11/14/23 17:45
Physical Exam
General: Well Developed, Well Nourished and No Apparent Distress
HEENT: NormoCephalic, Moist mucous membranes and Atraumatic
Respiratory: Clear
Cardiac: S1/S2 and Regular Rhythm; No Murmur or Rub
GI: Soft, Non Tender, Non Distended and Normal Bowel Sounds; No Organomegaly
Rectal: Deferred by Provider
Musculoskeletal: No Clubbing, No Cyanosis and No Edema
Skin: No Rash
Neuro: Nonfocal/grossly intact
Laboratory Results
-
11/14/23 17:58
11/14/23 17:58
Laboratory Results
Lactic Acid Cancelled 11/14/23 18:00
Total Bilirubin 0.3 mg/dl (0.2-1.3) 11/14/23 17:58
AST 28 U/L (14-36) 11/14/23 17:58
ALT 17 U/L (0-35) 11/14/23 17:58
Alkaline Phosphatase 63 U/L (38-126) 11/14/23 17:58
Data Reviewed
-
Lab Data: Labs Reviewed by me
Old Records: Reviewed
Impression/Plan
-
IMPRESSION:
PLAN:
# Influenza A pneumonia
-Fever 101.5
-Check blood cultures
-Start Tamiflu
-IV fluids given in ER
# Chronic hyponatremia secondary to SIADH
-Sodium at baseline
-Patient not on fluid restriction
-Would likely benefit from mild fluid restriction
Hypercholesterolemia
History of DVT July
-Continue Eliquis
Anxiety/depression
-Continue Lexapro
History of muscle spasms
-Continue baclofen
Chronic pain syndrome
-Continue buprenorphine
Neurogenic bladder
DNR/DNI
DVT prophylaxis-Eliquis
Regular diet
[2023-11-14] MEDS: TAMIFLU 75 MG PO (21:24)
[2023-11-14 22:21] VITALS: BP 108/59; BMI 27.3
--- NOTE | 2023-11-15 02:31 | PTCARENOTE ---
PT admitted to room 2132 from the ED @ 22:10. PT transferred from stretcher to bed with max assist. PT oriented to room, call sage, plan of care discussed. PT is AAOX3 and participates fully in admission questions. Assessment as documented.
[2023-11-15 07:35] VITALS: BP 94/52
[2023-11-15] MEDS: B COMPLEX w/VITAMIN C 1 CAPLET PO (09:00)
[2023-11-15] MEDS: VITAMIN D3 (cholecalciferol) 25 MCG PO (09:00)
[2023-11-15] MEDS: LEXAPRO 10 MG PO (09:00)
[2023-11-15] MEDS: VISBIOME 1 CAP PO (09:00)
[2023-11-15] MEDS: TAMIFLU 75 MG PO ×2 (09:00→20:22)
[2023-11-15] MEDS: OSCAL CAL 500 500 MG PO (09:00)
[2023-11-15] MEDS: ELIQUIS 5 MG PO ×2 (09:00→20:22)
[2023-11-15] MEDS: MAG-TAB SR 84 MG PO (09:00)
[2023-11-15 09:36] LABS: Hematocrit 35.6 % (37.0-47.0); Hemoglobin 12.2 g/dL (12.0-16.0); Mean Corp Hgb Conc. 34.3 g/dL (33.0-37.0); Mean Corpuscular Hgb 30.6 pg (27.0-31.0); Mean Corpuscular Volume 89.2 fL (81.0-99.0); Platelet Count 187 10^3/uL (130-400); Red Blood Cell Count 3.99 10^6/uL (4.20-5.40); Red Cell Dist. Width 13.2 % (11.5-14.5)
[2023-11-15 10:10] VITALS: BP 101/62
[2023-11-15 10:46] LABS: Absolute Neutrophils -Man Diff 2.6 10^3/uL (1.4-6.5); Band Neutrophils 0 % (0-3); Lymphocytes 22 % (20-51); Monocytes 12 % (2-9); Segmented Neutrophils 66 % (42-75)
[2023-11-15 10:47] LABS: Normal RBC Morphology Yes; Platelets Checked Yes; Total Cells Counted 100
[2023-11-15 10:52] LABS: ALT (SGPT) 17 U/L (0-35); AST (SGOT) 30 U/L (14-36); Albumin 3.7 g/dl (3.5-5.0); Alkaline Phosphatase 64 U/L (38-126); Blood Urea Nitrogen 9 mg/dl (7-17); Calcium 8.5 mg/dl (8.4-10.2); Carbon Dioxide 24 mmol/L (22-30); Chloride 100 mmol/L (98-107); Estimated Creatinine Clearance 56 ml/min; Glucose 91 mg/dl (70-99); Potassium 4.1 mmol/L (3.5-5.1); Sodium 130 mmol/L (135-145); Total Bilirubin 0.4 mg/dl (0.2-1.3); Total Protein 6.4 g/dl (6.3-8.2); eGFR > 60.00
--- NOTE | 2023-11-15 13:35 | W.PN.HOSP.TC ---
Today's Communication/Plan
-
Tamiflu
Free water restriction
Follow-up cultures
Assessment / Plan
Assessment / Plan
Physical Exam
General: Well Developed, Well Nourished and No Apparent Distress
HEENT: NormoCephalic, Moist mucous membranes and Atraumatic
Respiratory: Clear
Cardiac: S1/S2 and Regular Rhythm; No Murmur or Rub
GI: Soft, Non Tender, Non Distended and Normal Bowel Sounds; No Organomegaly
Rectal: Deferred by Provider
Musculoskeletal: No Clubbing, No Cyanosis and No Edema
Skin: No Rash
Neuro: Nonfocal/grossly intact
PLAN:
# Influenza A pneumonia
-Fever 101.5
-Check blood cultures
-Start Tamiflu
-IV fluids given in ER
-PTOT for lethargy
# Chronic hyponatremia secondary to SIADH
-Sodium at baseline
-Patient not on fluid restriction
-Would likely benefit from mild fluid restriction
Hypercholesterolemia
History of DVT July
-Continue Eliquis
Anxiety/depression
-Continue Lexapro
History of muscle spasms
-Continue baclofen
Chronic pain syndrome
-Continue buprenorphine
Neurogenic bladder
DNR/DNI
DVT prophylaxis-Eliquis
Regular diet
Anticipated Discharge: Within 24 hours
Subjective/Interval History
-
Date of Service: November 15, 2023
No acute events
Objective Data
-
Labs:
Laboratory Results
11/15/23
08:44
WBC 4.0 L
Hgb 12.2
Hct 35.6 L
Plt Count 187
Sodium 130 L
Potassium 4.1
Chloride 100
Carbon Dioxide 24
BUN 9
Creatinine 0.6
Glucose 91
Calcium 8.5
Total Bilirubin 0.4
AST 30
ALT 17
Alkaline Phosphatase 64
Vital Signs:
Vital Signs
Temp Pulse Resp BP Pulse Ox
98.8 F 70 14 101/62 91
11/15/23 07:35 11/15/23 10:10 11/15/23 07:35 11/15/23 10:10 11/15/23 07:35
Review of Systems
-
Constitutional: Denies Fever
EENT: Denies Sore Throat
Respiratory: Denies Cough or Trouble Breathing
Cardiac: Denies Chest Pain
Abdomen/GI: Denies Abdominal Pain, Nausea or Vomiting
Neuro: Denies Dizzy
Data Reviewed
-
Diagnostic Radiology: Image personally visualized and interpreted and Report Reviewed by me
Labs: Labs Reviewed by me
--- NOTE | 2023-11-15 14:45 | CM ---
CM reviewed chart and met with pt bedside
Pt is very UG[place]
Pt resides alone in a apartment at [facility]
She is normally independent- she has WW, WC and scooter for use as needed
Pt has aide services 9-4p through [facility] 6 days week
Pt has hx with visiting nurses through [facility]
PCP- Radha Chavira
Rx- [facility]
PT/OT evals noted
Pt is OBS- HANNA completed verbally due to infection precautions
Copy provided
Discharge Disposition- home, watch for VN or higher needs
[2023-11-15 15:20] VITALS: BP 116/62
[2023-11-15] MEDS: TYLENOL 1000 MG PO (20:22)
[2023-11-15] MEDS: NON-FORMULARY ITEM 1 MCG TOPICAL (22:10)
[2023-11-15 23:29] VITALS: BP 105/63
[2023-11-16 07:40] VITALS: BP 107/57
[2023-11-16 08:25] LABS: Hematocrit 39.6 % (37.0-47.0); Hemoglobin 13.9 g/dL (12.0-16.0); Mean Corp Hgb Conc. 35.1 g/dL (33.0-37.0); Mean Corpuscular Hgb 31.2 pg (27.0-31.0); Mean Corpuscular Volume 88.8 fL (81.0-99.0); Mean Platelet Volume 10.7 fL (7.4-10.4); Platelet Count 177 10^3/uL (130-400); Red Blood Cell Count 4.46 10^6/uL (4.20-5.40); Red Cell Dist. Width 13.2 % (11.5-14.5); White Blood Cell Count 5.2 10^3/uL (4.8-10.8)
[2023-11-16] MEDS: B COMPLEX w/VITAMIN C 1 CAPLET PO (08:40)
[2023-11-16] MEDS: LEXAPRO 10 MG PO (08:40)
[2023-11-16] MEDS: OSCAL CAL 500 500 MG PO (08:40)
[2023-11-16] MEDS: TAMIFLU 75 MG PO ×2 (08:40→20:52)
[2023-11-16] MEDS: MAG-TAB SR 84 MG PO (08:41)
[2023-11-16] MEDS: ELIQUIS 5 MG PO ×2 (08:41→20:53)
[2023-11-16] MEDS: TYLENOL 1000 MG PO ×2 (08:41→20:52)
[2023-11-16] MEDS: VISBIOME 1 CAP PO (08:41)
[2023-11-16] MEDS: VITAMIN D3 (cholecalciferol) 25 MCG PO (08:41)
[2023-11-16 08:53] LABS: Blood Urea Nitrogen 14 mg/dl (7-17); Carbon Dioxide 23 mmol/L (22-30); Chloride 97 mmol/L (98-107); Estimated Creatinine Clearance 56 ml/min; Glucose 71 mg/dl (70-99); Potassium 4.1 mmol/L (3.5-5.1); Sodium 132 mmol/L (135-145); eGFR > 60.00
[2023-11-16 10:00] VITALS: BP 111/64; PULSE 63; O2SAT 93
--- NOTE | 2023-11-16 12:59 | CM ---
CM reviewed pt with Dr castaneda- TEVIN tomorrow
SNF recommended by therapy
Referral sent [facility] to [facility] as pt resides in [facility]
Will need follow up tomorrow with SNF admission re- out of pocket costs
Pt is OBS and without qualifying stay
Discharge Disposition- [facility] private pay
--- NOTE | 2023-11-16 13:08 | W.PN.HOSP.TC ---
Today's Communication/Plan
-
tamiflu
procal
dispo: Skilled rehab
Assessment / Plan
Assessment / Plan
Physical Exam
General: Well Developed, Well Nourished and No Apparent Distress
HEENT: NormoCephalic, Moist mucous membranes and Atraumatic
Respiratory: Clear
Cardiac: S1/S2 and Regular Rhythm; No Murmur or Rub
GI: Soft, Non Tender, Non Distended and Normal Bowel Sounds; No Organomegaly
Rectal: Deferred by Provider
Musculoskeletal: No Clubbing, No Cyanosis and No Edema
Skin: No Rash
Neuro: Nonfocal/grossly intact
PLAN:
# Influenza A pneumonia
-Fever 101.5
-Check blood cultures
-Start Tamiflu
-IV fluids given in ER
-PTOT for lethargy
� ProCal f/u
# Chronic hyponatremia secondary to SIADH
-Sodium at baseline
-not been on fwr
-start FWR here
Hypercholesterolemia
History of DVT July
-Continue Eliquis
Anxiety/depression
-Continue Lexapro
History of muscle spasms
-Continue baclofen
Chronic pain syndrome
-Continue buprenorphine
Neurogenic bladder
DNR/DNI
DVT prophylaxis-Eliquis
Regular diet
DC ready, CM aware - Skilled rehab pending
Anticipated Discharge: Within 24 hours
Subjective/Interval History
-
Date of Service: November 16, 2023
No acute events
Objective Data
-
Labs:
Laboratory Results
11/16/23
08:02
WBC 5.2
Hgb 13.9
Hct 39.6
Plt Count 177
Sodium 132 L
Potassium 4.1
Chloride 97 L
Carbon Dioxide 23
BUN 14
Creatinine 0.5 L
Glucose 71
Calcium 9.0
Vital Signs:
Vital Signs
Temp Pulse Resp BP Pulse Ox
98.7 F 65 14 107/57 95
11/16/23 07:40 11/16/23 07:40 11/16/23 07:40 11/16/23 07:40 11/16/23 07:40
I&O
11/15/23 11/16/23 11/17/23
06:59 06:59 06:59
Intake Total 1320 / 1320
Balance 1320 / 1320
Review of Systems
-
Constitutional: Denies Fever
EENT: Denies Sore Throat
Respiratory: Denies Cough or Trouble Breathing
Cardiac: Denies Chest Pain
Abdomen/GI: Denies Abdominal Pain, Nausea or Vomiting
Neuro: Denies Dizzy
Data Reviewed
-
Diagnostic Radiology: Image personally visualized and interpreted and Report Reviewed by me
Labs: Labs Reviewed by me
[2023-11-16 14:31] LABS: Procalcitonin < 0.05 ng/ml (0.0-0.25)
[2023-11-16 15:15] VITALS: BP 93/56
[2023-11-16 23:25] VITALS: BP 104/62
[2023-11-17 04:53] LABS: Hematocrit 36.9 % (37.0-47.0); Mean Corp Hgb Conc. 35.2 g/dL (33.0-37.0); Mean Corpuscular Hgb 30.5 pg (27.0-31.0); Mean Corpuscular Volume 86.6 fL (81.0-99.0); Mean Platelet Volume 10.6 fL (7.4-10.4); Platelet Count 181 10^3/uL (130-400); Red Blood Cell Count 4.26 10^6/uL (4.20-5.40); Red Cell Dist. Width 12.8 % (11.5-14.5); White Blood Cell Count 4.2 10^3/uL (4.8-10.8)
[2023-11-17 05:22] LABS: ALT (SGPT) 16 U/L (0-35); AST (SGOT) 27 U/L (14-36); Albumin 3.7 g/dl (3.5-5.0); Alkaline Phosphatase 55 U/L (38-126); Blood Urea Nitrogen 15 mg/dl (7-17); Calcium 8.7 mg/dl (8.4-10.2); Carbon Dioxide 24 mmol/L (22-30); Chloride 98 mmol/L (98-107); Estimated Creatinine Clearance 56 ml/min; Glucose 77 mg/dl (70-99); Potassium 3.8 mmol/L (3.5-5.1); Sodium 132 mmol/L (135-145); Total Bilirubin 0.5 mg/dl (0.2-1.3); Total Protein 6.3 g/dl (6.3-8.2); eGFR > 60.00
[2023-11-17 07:00] VITALS: BP 117/56
[2023-11-17] MEDS: LEXAPRO 10 MG PO (07:58)
[2023-11-17] MEDS: ELIQUIS 5 MG PO ×2 (07:58→20:57)
[2023-11-17] MEDS: VISBIOME 1 CAP PO (07:58)
[2023-11-17] MEDS: MAG-TAB SR 84 MG PO (07:58)
[2023-11-17] MEDS: B COMPLEX w/VITAMIN C 1 CAPLET PO (07:58)
[2023-11-17] MEDS: OSCAL CAL 500 500 MG PO (07:58)
[2023-11-17] MEDS: VITAMIN D3 (cholecalciferol) 25 MCG PO (07:58)
[2023-11-17] MEDS: TAMIFLU 75 MG PO ×2 (07:58→20:56)
[2023-11-17] MEDS: TYLENOL 1000 MG PO ×2 (07:58→20:56)
--- NOTE | 2023-11-17 08:56 | W.PN.HOSP.TC ---
Today's Communication/Plan
-
check stools
Assessment / Plan
Assessment / Plan
PLAN:
# Influenza A pneumonia
-Fever 101.5 on admission, afebrile since
-Check blood cultures - NGTD
-Started Tamiflu
-IV fluids given in ER
-PTOT for lethargy
� ProCal neg at <0.05
# Chronic hyponatremia secondary to SIADH
-Sodium at baseline 132
-not been on fwr
-start FWR here
Pt states she noted black stools
will request check stools of occult blood
Hypercholesterolemia
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
History of DVT July
-Continue Eliquis
Anxiety/depression
-Continue Lexapro
History of muscle spasms
-Continue baclofen
Chronic pain syndrome
-Continue buprenorphine
Neurogenic bladder
DNR/DNI
DVT prophylaxis-Eliquis
Regular diet
DC ready, CM aware - Skilled rehab pending
Pt lives at [facility], await input at to dispo
Anticipated Discharge: Within 24 hours
Subjective/Interval History
-
Date of Service: November 17, 2023
Awake, alert, conversant
Objective Data
-
Labs:
Laboratory Results
11/17/23
04:27
WBC 4.2 L
Hgb 13.0
Hct 36.9 L
Plt Count 181
Sodium 132 L
Potassium 3.8
Chloride 98
Carbon Dioxide 24
BUN 15
Creatinine 0.4 L
Glucose 77
Calcium 8.7
Total Bilirubin 0.5
AST 27
ALT 16
Alkaline Phosphatase 55
Vital Signs:
Vital Signs
Temp Pulse Resp BP Pulse Ox
97.8 F 61 16 117/56 95
11/17/23 07:00 11/17/23 07:00 11/17/23 07:00 11/17/23 07:00 11/17/23 07:00
I&O
11/16/23 11/17/23 11/18/23
06:59 06:59 06:59
Intake Total 1320 / 1320 820 / 820
Balance 1320 / 1320 820 / 820
Review of Systems
-
History Source: Patient and Coordinated Provider (reviewed with CM)
Constitutional: Denies Fever (afebrile >48 hrs)
Respiratory: Reports Cough
Cardiac: Reports No Symptoms
Abdomen/GI: Reports No Symptoms
Genitourinary: Reports No Symptoms
Neuro: Reports Other (s/p CVA)
Physical Exam
-
General: Well Developed, Well Nourished and No Apparent Distress
HEENT: Normocephalic, Atraumatic and Moist Mucous Membranes
Respiratory: Clear to Auscultation; Negative Wheezes, Rales or Rhonchi
Cardiac: Regular Rhythm and S1/S2
GI: Soft, Nontender and Nondistended
Musculoskeletal: No Clubbing, No Cyanosis and No Edema
Neuro: Awake, Alert and Oriented; Negative No Motor Deficits (s/p CVA 1986 with left hemiparesis)
[2023-11-17 11:50] VITALS: BP 101/67; PULSE 66; O2SAT 93
--- NOTE | 2023-11-17 14:14 | CM ---
Reviewed the chart notes and spoke with the patient at the bedside. PT recommending home with VN. Discussed with the patient potential for discharge to home tomorrow. Patient arranged to have [facility] increase SOFTWARE QUALITY ASSURANCE ENGINEER daily 1:00pm - 8:00pm. CM
spoke with [facility] SHLOMO Trotter. Per Rose Marie, their PT and VN would not be able to accommodate the patient due to being Flu+. Discussed which agencies they partner with. [employer] [facility]. Patient in agreement with VN. Referral sent via [facility]. CM continues to be available to patient/family and is monitoring medical plan for needs at discharge.
[facility] Transportation will need to be arranged.
[2023-11-17 15:00] VITALS: BP 122/65
[2023-11-17 23:33] VITALS: BP 126/66
[2023-11-18 08:27] VITALS: BP 113/72
[2023-11-18] MEDS: VITAMIN D3 (cholecalciferol) 25 MCG PO (09:14)
[2023-11-18] MEDS: TAMIFLU 75 MG PO (09:14)
[2023-11-18] MEDS: TYLENOL 1000 MG PO (09:14)
[2023-11-18] MEDS: VISBIOME 1 CAP PO (09:14)
[2023-11-18] MEDS: MAG-TAB SR 84 MG PO (09:15)
[2023-11-18] MEDS: OSCAL CAL 500 500 MG PO (09:15)
[2023-11-18] MEDS: LEXAPRO 10 MG PO (09:15)
[2023-11-18] MEDS: B COMPLEX w/VITAMIN C 1 CAPLET PO (09:15)
[2023-11-18] MEDS: ELIQUIS 5 MG PO (09:15)
--- NOTE | 2023-11-18 09:22 | W.PN.HOSP.TC ---
Today's Communication/Plan
-
DC to [facility]
Assessment / Plan
Assessment / Plan
PLAN:
# Influenza A pneumonia
-Fever 101.5 on admission, afebrile since
-Check blood cultures - NGTD
-Started Tamiflu
-IV fluids given in ER
-PTOT for lethargy
� ProCal neg at <0.05
SaO2 94-95% on room air
# Chronic hyponatremia secondary to SIADH
-Sodium at baseline 132
-not been on fwr
-start FWR here
Pt states she noted black stools
neg stools for occult blood
Hypercholesterolemia
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
History of DVT July
-Continue Eliquis
Anxiety/depression
-Continue Lexapro
History of muscle spasms
-Continue baclofen
Chronic pain syndrome
-Continue buprenorphine
Hard of Hearing
Neurogenic bladder
DNR/DNI
DVT prophylaxis-Eliquis
Regular diet
DC ready,
Pt lives at [facility], confirmed with Lyudmila, CM, will return to her apartment at [facility] with VN
More than 30 minutes spent in discharge including
Final examination of the patient
Summarizing hospital stay
Instructions for continuing care to all relevant caregivers
Preparation of discharge records, prescriptions, and referral forms
Total time spent (in minutes): 45
Anticipated Discharge: Today
Subjective/Interval History
-
Date of Service: November 18, 2023
Feels well, anxiously awaiting dc
Objective Data
-
Vital Signs:
Vital Signs
Temp Pulse Resp BP Pulse Ox
98.1 F 65 16 126/66 94
03/04/24 23:33 11/17/23 23:33 11/17/23 23:33 11/17/23 23:33 11/18/23 00:48
I&O
11/17/23 11/18/23 11/19/23
06:59 06:59 06:59
Intake Total 820 / 820 720 / 720
Balance 820 / 820 720 / 720
Review of Systems
-
History Source: Patient and Coordinated Provider (reviewed with CM)
Constitutional: Denies Fever (afebrile >48 hrs)
Respiratory: Reports Cough (has diminished, not resolved)
Cardiac: Reports No Symptoms
Abdomen/GI: Reports No Symptoms
Genitourinary: Reports No Symptoms
Neuro: Reports Other (s/p CVA)
Physical Exam
-
General: Well Developed, Well Nourished and No Apparent Distress
HEENT: Normocephalic, Atraumatic and Moist Mucous Membranes
Respiratory: Clear to Auscultation; Negative Wheezes, Rales or Rhonchi
Cardiac: Regular Rhythm and S1/S2
GI: Soft, Nontender and Nondistended
Musculoskeletal: No Clubbing, No Cyanosis and No Edema
Neuro: Awake, Alert and Oriented; Negative No Motor Deficits (s/p CVA 1987 with left hemiparesis)
--- NOTE | 2023-11-18 09:24 | CM ---
Addendum entered by Evelyn Crawford RN 11/18/23 10:37:
CM spoke with [facility] and they confirmed the home healthcare recruiter will be available for the patient at 2pm. Patient's pick-up time is 1:30pm.
Original Note:
Reviewed the chart notes and spoke with the patient at the bedside. 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 CM continues to be available to patient/family and is monitoring medical plan for needs at
discharge.
Plan: Discharge to home today with [facility].
[facility]
Medical necessity and transport form on chart.
--- NOTE | 2023-11-18 09:35 | W.DS.TRANS ---
DC Summary - [employer]
-
Discharge Instructions:
Discharge Diagnosis/Procedures Influenza
Diet Regular,Restrict fluids to 64 oz
Activity With assistance
Driving Restrictions No driving
Bathing Restrictions None
Blood Work CBC, BMP in 1-2 weeks
Other Services VN
Instructions:
Stand-Alone Forms:
Changes to Home Medications: Yes
Discharge Medications:
DC Medications w/original date entered in [employer]
acetaminophen 325 mg tablet 1,300 mg PO BID Pain 10/24/23
apixaban 5 mg tablet (Eliquis) 5 mg PO BID Blood Clot Prevention/Tx 10/24/23
buprenorphine 5 mcg/hour weekly transdermal patch 5 mcg topical FR Pain 10/24/23
cholecalciferol (vitamin D3) 25 mcg (1,000 unit) tablet (Vitamin D3) 25 mcg PO DAILY Supplement 10/24/23
escitalopram oxalate 10 mg tablet 10 mg PO DAILY Depression 10/24/23
fexofenadine 180 mg tablet 180 mg PO HS Allergies 10/24/23
turmeric root extract 500 mg capsule (Curcuplex-95) 1,000 mg PO DAILY Supplement ##0 10/24/23
vitamin B complex 1 tab PO DAILY Supplement 10/24/23
Lactobac no.2-Bifidobac no.1-S. thermo 112.5 billion cell capsule (Visbiome) 1 cap PO DAILY 11/14/23
baclofen 5 mg tablet 2.5 mg PO TIDPRN PRN spasms 11/14/23
calcium carbonate 500 mg calcium (1,250 mg) chewable tablet (Calcium 500) 500 mg PO DAILY 11/14/23
glutathione 50 mg capsule 100 mg PO DAILY 11/14/23
magnesium oxide 400 mg PO DAILY 11/14/23
sennosides 8.6 mg tablet (senna) 17.2 mg PO HSPRN PRN constipation 11/14/23
tacrolimus 0.1 % topical ointment 1 applic topical DAILY 11/14/23
oseltamivir 75 mg capsule 75 mg PO BID #3 caps 03/05/24
Home Medication Changes
Tamiflu for 3 more doses
Pending Results: No
== END 2023-11-18 14:00 | disposition home health service (06) ==
LOC: 2 NORTH 21:30
PROVIDERS: Internal Medicine; Nurse Practitioner; ADMITTING PHYSICIAN Hospitalist; ATTENDING PHYSICIAN Internal Medicine; EMERGENCY PHYSICIAN Emergency Medicine; FAMILY PHYSICIAN Internal Medicine
DX: J10.00 Influenza due to other identified influenza virus with unspecified type of pneumonia (principal); E78.00 Pure hypercholesterolemia, unspecified; I69.354 Hemiplegia and hemiparesis following cerebral infarction affecting left non-dominant side; F32.A Depression, unspecified; F41.9 Anxiety disorder, unspecified; G89.4 Chronic pain syndrome; N31.9 Neuromuscular dysfunction of bladder, unspecified; E22.2 Syndrome of inappropriate secretion of antidiuretic hormone; M62.838 Other muscle spasm; I10 Essential (primary) hypertension; Z11.52 Encounter for screening for COVID-19; Z66 Do not resuscitate; Z79.01 Long term (current) use of anticoagulants; Z79.899 Other long term (current) drug therapy; Z86.718 Personal history of other venous thrombosis and embolism
CPT/HCPCS: 71046; 80048; 80053; 81003; 81015; 83605; 84145; 85025; 85027; 87040; 87502; 87811; 93005; 96360; 97116; 97163; 97166; 97530; 99285; G0378